=== PATIENT | female | born 1960 | race Caucasian/White ===

== ENCOUNTER 2020-10-16 14:11 | Observation (INO) | payer BC ==
--- NOTE | 2020-10-16 14:31 | ERPHSYRPT ---
- History of Present Illness Time Seen by Provider: 10/16/20 14:30 Source: patient Exam Limitations: no limitations Physician History: Patient is a 60-year-old female with a history of diabetes presents to our ED with complaints of headache x2 days, dizziness x1 day, and weakness and numbness to her left lower leg which was observed this morning upon awakening. Patient awoke this morning at approximately 5:30 AM. The numbness and weakness of the left lower leg likely occurred at some point while she was asleep. Upon arrival to our ED our information receptionist observed the patient's speech was somewhat slurred. However during my exam patient's speech did not appear slurred. Patient's headache has been intermittent over the past couple days. Headache is global. Patient states her dizziness occurs mostly when she turns her head. No associated nausea or vomiting. Symptoms are constant. Symptoms are moderate in intensity. No specific worsening or improving factors. Patient is a diabetic. Patient states TIAs run in her family. Patient is a none smoker. 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 Patient voices no other complaints or concerns at this time. Timing/Duration: day(s) Severity: moderate Modifying Factors: Improves With: nothing Associated Symptoms: headaches, weakness, No shortness of breath, No chest pain, No syncope, No seizure Allergies/Adverse Reactions: codeine Allergy (Verified 10/16/20 14:56) lidocaine Allergy (Verified 10/16/20 14:56) Home Medications: Glimepiride 4 mg [Amaryl 4 mg] 4 mg PO BID 10/16/20 [History] Insulin NPH Hum/Reg Insulin Hm [Novolin 70-30 Flexpen] 1 unit SQ BID 10/16/20 [History] lisinopriL [Lisinopril] 10 mg PO DAILY 10/16/20 [History] - Review of Systems Constitutional: No Symptoms, No Fever, No Chills Eyes: No Symptoms Ears, Nose, & Throat: No Symptoms Respiratory: No Symptoms, No Cough, No Dyspnea Cardiac: No Symptoms, No Chest Pain, No Edema, No Syncope Abdominal/Gastrointestinal: No Symptoms, No Abdominal Pain, No Nausea, No Vomiting, No Diarrhea Genitourinary Symptoms: No Symptoms, No Dysuria Musculoskeletal: No Symptoms, No Back Pain, No Neck Pain Skin: No Symptoms, No Rash Neurological: No Symptoms, No Dizziness, No Focal Weakness, No Sensory Changes Psychological: No Symptoms Endocrine: No Symptoms Hematologic/Lymphatic: No Symptoms Immunological/Allergic: No Symptoms All Other Systems: Reviewed and Negative - Nursing Vital Signs Nursing Vital Signs: Initial Vital Signs Temperature 97.8 F 10/16/20 14:16 Pulse Rate 92 H 10/16/20 14:16 Respiratory Rate 20 10/16/20 14:16 Blood Pressure 179/90 10/16/20 14:16 O2 Sat by Pulse Oximetry 97 10/16/20 14:16 Pain Scale Pain Intensity 5 - Physical Exam General Appearance: no apparent distress, alert Eye Exam: PERRL/EOMI, eyes nml inspection Ears, Nose, Throat Exam: normal ENT inspection, TMs normal, pharynx normal, moist mucous membranes Neck Exam: normal inspection, non-tender, supple, full range of motion Respiratory Exam: normal breath sounds, lungs clear, No respiratory distress Cardiovascular Exam: regular rate/rhythm, normal heart sounds, normal peripheral pulses Gastrointestinal/Abdomen Exam: soft, normal bowel sounds, No tenderness, No mass Back Exam: normal inspection, normal range of motion, No CVA tenderness, No vertebral tenderness Extremity Exam: normal inspection, normal range of motion, pelvis stable Neurologic Exam: alert, oriented x 3, cooperative, coffee blender II-XII nml as tested, normal mood/affect, sensation nml, sensory deficit, No motor deficits, No facial droop (Left lower leg appears to be somewhat less coordinated during heel -to-muhammad exam. Patient states sensation is somewhat more diminished. Remaining neurologic exam appears to be normal. Negative drift. No obvious slurred speech observed.), No slurred speech Skin Exam: normal color, warm, dry, No rash Lymphatic Exam: No adenopathy SpO2 Interpretation: normal O2 Delivery: Room Air - Course Nursing assessment & vital signs reviewed: Yes EKG Interpreted by Me: RATE (95), Sinus Rhythm, NORMAL AXIS, NORMAL INTERVALS - CT Exams Head CT Interpretation: Tele-radiologist Report (CT head negative for acute injury or cranial pathology.) Ordered Tests: Active Orders 24 hr Category Date Time Status Juvenile [employer] Judge STAT Care 10/16/20 14:27 Active EKG-ER Only STAT Care 10/16/20 14:26 Active IV Insertion STAT Care 10/16/20 14:26 Active POCT Glucose Check STAT Care 10/16/20 14:33 Active Pulse Oximetry (ED) STAT Care 10/16/20 14:26 Active HEAD WITHOUT CONTRAST [CT] Stat Exams 10/16/20 14:26 Completed CBC W DIFF Stat Lab 10/16/20 14:30 Completed CMP Stat Lab 10/16/20 14:30 Completed POCT GLUCOSE Stat Lab 10/16/20 14:32 Completed TROPONIN Q3H Lab 10/16/20 14:30 Completed TROPONIN Q3H Lab 10/16/20 17:30 Completed TROPONIN Q3H Lab 10/16/20 20:30 Ordered TROPONIN Q3H Lab 10/16/20 23:30 Ordered TROPONIN Q3H Lab 10/17/20 02:30 Ordered Transfer Order Routine Transfer 10/16/20 Ordered Medication Summary Generic Name Dose Route Start Last Admin Trade Name Freq PRN Reason Stop Dose Admin Sodium Chloride 1,000 mls @ 75 mls/hr 10/16/20 14:30 10/16/20 14:46 Sodium Chloride 0.9% 1000 Ml IV 11/15/20 14:29 75 mls/hr .[id number] JEAN-PAUL Administration Discontinued Medications Generic Name Dose Route Start Last Admin Trade Name Freq PRN Reason Stop Dose Admin Aspirin 324 mg 10/16/20 18:41 Baby Aspirin 81 Mg Chew PO 10/16/20 18:42 STAT ONE Lab/Rad Data: Laboratory Result Diagrams 10/16/20 14:30 10/16/20 14:30 Laboratory Results 10/16/20 10/16/20 10/16/20 Range/Units 17:59 17:30 14:32 WBC (4.0-10.5) K/mm3 RBC (4.1-5.4) M/mm3 Hgb (12.0-16.0) gm/dl Hct (35-47) % MCV (78-100) fl MCH (26-32) pg MCHC (32-36) g/dl RDW (11.5-14.0) % Plt Count (150-450) K/mm3 MPV (7.5-11.0) fl Gran % (36.0-66.0) % Eos # (Auto) (0-0.5) Absolute Lymphs (auto) (1.0-4.6) Absolute Monos (auto) (0.0-1.3) Lymphocytes % (24.0-44.0) % Monocytes % (0.0-12.0) % Eosinophils % (0.00-5.0) % Basophils % (0.0-0.4) % Absolute Granulocytes (1.4-6.9) Basophils # (0-0.4) Sodium (137-145) mmol/L Potassium (3.5-5.1) mmol/L Chloride (98-107) mmol/L Carbon Dioxide (22-30) mmol/L Anion Gap (5-15) MEQ/L BUN (7-17) mg/dL Creatinine (0.52-1.04) mg/dL Estimated GFR ML/MIN Glucose (74-106) mg/dL POC Glucometer 337 H (74 to 106) mg/dL Calcium (8.4-10.2) mg/dL Total Bilirubin (0.2-1.3) mg/dL AST (14-36) U/L ALT (0-35) U/L Alkaline Phosphatase (38-126) U/L Troponin I < 0.012 (0.000-0.034) ng/mL Serum Total Protein (6.3-8.2) g/dL Albumin (3.5-5.0) g/dL SARS-CoV-2 (PCR) NEGATIVE (NEGATIVE) 10/16/20 10/16/20 10/16/20 Range/Units 14:30 14:30 14:30 WBC 7.7 (4.0-10.5) K/mm3 RBC 4.83 (4.1-5.4) M/mm3 Hgb 14.5 (12.0-16.0) gm/dl Hct 43.7 (35-47) % MCV 90.5 (78-100) fl MCH 30.0 (26-32) pg MCHC 33.2 (32-36) g/dl RDW 13.1 (11.5-14.0) % Plt Count 240 (150-450) K/mm3 MPV 9.4 (7.5-11.0) fl Gran % 54.1 (36.0-66.0) % Eos # (Auto) 0.14 (0-0.5) Absolute Lymphs (auto) 2.69 (1.0-4.6) Absolute Monos (auto) 0.67 (0.0-1.3) Lymphocytes % 35.0 (24.0-44.0) % Monocytes % 8.7 (0.0-12.0) % Eosinophils % 1.8 (0.00-5.0) % Basophils % 0.4 (0.0-0.4) % Absolute Granulocytes 4.16 (1.4-6.9) Basophils # 0.03 (0-0.4) Sodium 139 (137-145) mmol/L Potassium 4.1 (3.5-5.1) mmol/L Chloride 102 (98-107) mmol/L Carbon Dioxide 26 (22-30) mmol/L Anion Gap 15.2 H (5-15) MEQ/L BUN 14 (7-17) mg/dL Creatinine 0.67 (0.52-1.04) mg/dL Estimated GFR > 60.0 ML/MIN Glucose 359 H (74-106) mg/dL POC Glucometer (74 to 106) mg/dL Calcium 9.7 (8.4-10.2) mg/dL Total Bilirubin 0.20 (0.2-1.3) mg/dL AST 24 (14-36) U/L ALT 24 (0-35) U/L Alkaline Phosphatase 55 (38-126) U/L Troponin I < 0.012 (0.000-0.034) ng/mL Serum Total Protein 6.5 (6.3-8.2) g/dL Albumin 4.0 (3.5-5.0) g/dL SARS-CoV-2 (PCR) (NEGATIVE) - Progress Progress: improved Progress Note: Case discussed with teleneuro neurologist. She states patient is out of the window for TPA. She recommends hospitalization for MRI. No further recommendation. Case discussed Dr. Newton covering Dr. Drake. Dr. Newton accepts admission. Patient is Covid negative 10/16/20 18:00 10/16/20 19:25 Discussed with : Heather Will see patient in: hospital (observation) Counseled pt/family regarding: lab results, diagnosis, rad results - Departure Departure Disposition: Observation Clinical Impression: Dizziness, Stroke Condition: Stable Critical Care Time: No Referrals: MARCUS DRAKE MD [Primary Care Provider] -
[2020-10-16] MEDS ORDERED: Sodium Chloride 0.9% 1000 ML 1,000 ML ONE (14:35)
--- NOTE | 2020-10-16 14:37 | XRAY ---
Indication: Stroke like symptoms. Multiple contiguous axial images obtained through the head without contrast. Comparison: None Age-appropriate global atrophy. No acute intracranial hemorrhage, abnormal extra-axial fluid collection, or mass effect. Fourth ventricle is midline without hydrocephalus. Perry-white matter differentiation preserved. Bony calvarium intact. Visualized paranasal sinuses and mastoid air cells are clear. Impression: Negative CT head without contrast exam.
[2020-10-16 14:39] LABS: Absolute Neutrophil Ct (ANC) 4.16 (1.4-6.9); BASOPHIL % 0.4 % (0.0-0.4); Basophil (Absolute #) 0.03 (0-0.4); Eosinophil % 1.8 % (0.00-5.0); Eosinophil (Absolute #) 0.14 (0-0.5); Hematocrit 43.7 % (35-47); Hemoglobin 14.5 gm/dl (12.0-16.0); Lymphocyte (Absolute #) 2.69 (1.0-4.6); Mean Cell Volume 90.5 fl (78-100); Mean Corpuscular Hgb Concent. 33.2 g/dl (32-36); Mean Platelet Volume 9.4 fl (7.5-11.0); Monocyte (Absolute #) 0.67 (0.0-1.3); Monocytes % 8.7 % (0.0-12.0); Neutrophil % 54.1 % (36.0-66.0); Platelet Count 240 K/mm3 (150-450); Red Blood Count 4.83 M/mm3 (4.1-5.4); Red Cell Distribution Width 13.1 % (11.5-14.0); White Blood Count 7.7 K/mm3 (4.0-10.5)
[2020-10-16] MEDS: Sodium Chloride 0.9% 1000 ML 1,000 ML IV SCH (14:46)
[2020-10-16 14:53] LABS: ALKALINE PHOSPHATASE 55 U/L (38-126); ANION GAP 15.2 MEQ/L (5-15); BLOOD UREA NITROGEN 14 mg/dL (7-17); CHLORIDE 102 mmol/L (98-107); Calcium 9.7 mg/dL (8.4-10.2); Carbon Dioxide 26 mmol/L (22-30); Creatinine 1 0.67 mg/dL (0.52-1.04); EST GLOMERULAR FILTRATION RATE > 60.0 ML/MIN; Glucose 359 mg/dL (74-106); Potassium 4.1 mmol/L (3.5-5.1); SGOT/AST 24 U/L (14-36); SGPT/ALT 24 U/L (0-35); SODIUM 139 mmol/L (137-145); Total Protein 6.5 g/dL (6.3-8.2)
[2020-10-16] MEDS ORDERED: BABY ASPIRIN 81 MG CHEW PO ONE (18:41)
[2020-10-16] MEDS ORDERED: Zofran 4 MG/2 ML VIAL IV PRN (19:50)
[2020-10-16] MEDS ORDERED: Senokot-S Tablet PO PRN (19:50)
[2020-10-16] MEDS ORDERED: MAALOX ES 30 ML UNIT DOSE PO PRN (19:50)
[2020-10-16] MEDS ORDERED: MILK OF MAGNESIA 30 ML PO PRN (19:50)
[2020-10-16] MEDS ORDERED: TYLENOL 325 MG PO PRN (19:50)
[2020-10-16] MEDS ORDERED: APRESOLINE 20 MG/ML INJ IV PRN (20:48)
[2020-10-16] MEDS: HUMALOG SQ PRN (22:08)
[2020-10-16] MEDS: Lyrica 50MG PO SCH (22:08)
[2020-10-17] MEDS ORDERED: Sodium Chloride 0.9% 1000 ML 1,000 ML ONE (02:59)
[2020-10-17] MEDS: Sodium Chloride 0.9% 1000 ML 1,000 ML IV SCH ×2 (03:02→22:02)
[2020-10-17 04:50] LABS: Risk Ratio 6.6
[2020-10-17] MEDS: Ecotrin 325 MG PO SCH (09:01)
[2020-10-17] MEDS: Lantus Insulin SQ SCH (09:01)
[2020-10-17] MEDS: Zestril 10 MG PO SCH (09:01)
[2020-10-17] MEDS: AMARYL 4 MG PO SCH ×2 (09:01→17:45)
--- NOTE | 2020-10-17 09:09 | PCM.HP ---
History of Present Illness - Chief Complaint Chief Complaint: CVA History of Present Illness: is a 60 year old female pt of Dr. Rollins with DM, HTN, and peripheral neuropathy who was admitted through ER last night with CVA. She has had 3d of RODRÍGUEZ and 2d of dizziness (started with vertigo, now lightheadedness). Yesterday morning she woke up with weakness/numbness in LLE - she did go ahead and go to work, and when her coworker came in she came home feeling ill. She was having slurred speech initially in ER, and now complains of some difficulty word finding. She has some persistent L hand weakness, but her main issue is her leg. Her CT of the head was neg in ER. Troponins neg x 5. At work 6d ago she had an episode where her L foot slid and she had to concentrate on her walking after that. - Review of Systems Musculoskeletal: Back Pain (between shoulder blades), Other (L calf pain x 2 mo; limb cramping) Neurological: Dizziness, Headache, Parasthesia, Other (weakness L sided) All Other Systems: Reviewed and Negative Medications & Allergies Home Medications: Home Medication List Glimepiride 4 mg [Amaryl 4 mg] 4 mg PO BID 10/16/20 [History Confirmed 10/16/20] Insulin NPH Hum/Reg Insulin Hm [Novolin 70-30 Flexpen] 1 unit SQ BID 10/16/20 [History Confirmed 10/16/20] Pregabalin 50 mg [Lyrica 50MG] 50 mg PO QHS 10/16/20 [History Confirmed 10/16/20] lisinopriL [Lisinopril] 10 mg PO DAILY 10/16/20 [History Confirmed 10/16/20] Allergies/Adverse Reactions: Allergies Allergy/AdvReac Type Severity Reaction Status Date / Time codeine Allergy Verified 10/16/20 14:56 lidocaine Allergy Verified 10/16/20 14:56 - Past Medical History Past Medical History: Yes Neurological History: No Pertinent History ENT History: Macular Degeneration Cardiac History: Hypertension Respiratory History: No Pertinent History Endocrine Medical History: Diabetes Type II Musculoskelatal History: Fibromyalgia GI Medical History: No Pertinent History History: No Pertinent History Pyscho-Social History: No Pertinent History Reproductive Disorders: No Pertinent History - Female History Are you now?: No - Past Surgical History Past Surgical History: Yes Neuro Surgical History: No Pertinent History Cardiac History: No Pertinent History Respiratory Surgery: No Pertinent History GI Surgical History: Appendectomy, Cholecystectomy Female Surgical History: Hysterectomy, Section - Social History Smoking Status: Never smoker Exposure to second hand smoke: No Alcohol: None Drug Use: none - Physical Exam Vital Signs: Vital Signs - 24 hr Temp Pulse Resp BP Pulse Ox 10/17/20 08:00 98.6 F 70 16 157/70 92 L 10/17/20 04:00 98.5 F 73 16 145/79 97 10/17/20 00:00 98.1 F 82 14 140/77 96 10/16/20 21:10 98.7 F 77 16 179/84 96 10/16/20 19:52 98.7 F 77 16 179/84 96 10/16/20 19:10 75 16 163/87 98 10/16/20 18:06 79 20 172/90 97 10/16/20 17:06 77 14 168/84 97 10/16/20 16:12 80 19 162/85 97 10/16/20 14:26 98 10/16/20 14:16 97.8 F 92 H 20 179/90 97 General Appearance: no apparent distress, alert Neurologic Exam: oriented x 3, cooperative, normal mood/affect, other (has mild difficulty word finding at times), No facial droop, No slurred speech Eye Exam: eyes nml inspection Ears, Nose, Throat Exam: moist mucous membranes Neck Exam: normal inspection Respiratory Exam: normal breath sounds, lungs clear, No crackles/rales, No rhonchi, No wheezing Cardiovascular Exam: regular rate/rhythm, normal heart sounds, No murmur Gastrointestinal/Abdomen Exam: soft, normal bowel sounds, No tenderness, No distention, No mass, No guarding, No rebound Back Exam: normal inspection, No rash Extremity Exam: other (L calf nttp; does palpate firmer than R), No pedal edema, No swelling Skin Exam: normal color, warm, dry, No rash Results - Labs Lab/Micro Results: Lab Results-Last 24 Hours 10/16/20 10/16/20 10/16/20 Range/Units 14:30 14:30 14:30 WBC 7.7 (4.0-10.5) K/mm3 RBC 4.83 (4.1-5.4) M/mm3 Hgb 14.5 (12.0-16.0) gm/dl Hct 43.7 (35-47) % MCV 90.5 (78-100) fl MCH 30.0 (26-32) pg MCHC 33.2 (32-36) g/dl RDW 13.1 (11.5-14.0) % Plt Count 240 (150-450) K/mm3 MPV 9.4 (7.5-11.0) fl Gran % 54.1 (36.0-66.0) % Eos # (Auto) 0.14 (0-0.5) Absolute Lymphs (auto) 2.69 (1.0-4.6) Absolute Monos (auto) 0.67 (0.0-1.3) Lymphocytes % 35.0 (24.0-44.0) % Monocytes % 8.7 (0.0-12.0) % Eosinophils % 1.8 (0.00-5.0) % Basophils % 0.4 (0.0-0.4) % Absolute Granulocytes 4.16 (1.4-6.9) Basophils # 0.03 (0-0.4) Sodium 139 (137-145) mmol/L Potassium 4.1 (3.5-5.1) mmol/L Chloride 102 (98-107) mmol/L Carbon Dioxide 26 (22-30) mmol/L Anion Gap 15.2 H (5-15) MEQ/L BUN 14 (7-17) mg/dL Creatinine 0.67 (0.52-1.04) mg/dL Estimated GFR > 60.0 ML/MIN Glucose 359 H (74-106) mg/dL POC Glucometer (74 to 106) mg/dL Calcium 9.7 (8.4-10.2) mg/dL Total Bilirubin 0.20 (0.2-1.3) mg/dL AST 24 (14-36) U/L ALT 24 (0-35) U/L Alkaline Phosphatase 55 (38-126) U/L Troponin I < 0.012 (0.000-0.034) ng/mL Serum Total Protein 6.5 (6.3-8.2) g/dL Albumin 4.0 (3.5-5.0) g/dL Triglycerides (30-150) mg/dL Cholesterol (50-200) mg/dL LDL Cholesterol (30-100) mg/dL HDL Cholesterol (40-60) mg/dL Heart Disease Risk Ratio SARS-CoV-2 (PCR) (NEGATIVE) 10/16/20 10/16/20 10/16/20 Range/Units 14:32 17:30 17:59 WBC (4.0-10.5) K/mm3 RBC (4.1-5.4) M/mm3 Hgb (12.0-16.0) gm/dl Hct (35-47) % MCV (78-100) fl MCH (26-32) pg MCHC (32-36) g/dl RDW (11.5-14.0) % Plt Count (150-450) K/mm3 MPV (7.5-11.0) fl Gran % (36.0-66.0) % Eos # (Auto) (0-0.5) Absolute Lymphs (auto) (1.0-4.6) Absolute Monos (auto) (0.0-1.3) Lymphocytes % (24.0-44.0) % Monocytes % (0.0-12.0) % Eosinophils % (0.00-5.0) % Basophils % (0.0-0.4) % Absolute Granulocytes (1.4-6.9) Basophils # (0-0.4) Sodium (137-145) mmol/L Potassium (3.5-5.1) mmol/L Chloride (98-107) mmol/L Carbon Dioxide (22-30) mmol/L Anion Gap (5-15) MEQ/L BUN (7-17) mg/dL Creatinine (0.52-1.04) mg/dL Estimated GFR ML/MIN Glucose (74-106) mg/dL POC Glucometer 337 H (74 to 106) mg/dL Calcium (8.4-10.2) mg/dL Total Bilirubin (0.2-1.3) mg/dL AST (14-36) U/L ALT (0-35) U/L Alkaline Phosphatase (38-126) U/L Troponin I < 0.012 (0.000-0.034) ng/mL Serum Total Protein (6.3-8.2) g/dL Albumin (3.5-5.0) g/dL Triglycerides (30-150) mg/dL Cholesterol (50-200) mg/dL LDL Cholesterol (30-100) mg/dL HDL Cholesterol (40-60) mg/dL Heart Disease Risk Ratio SARS-CoV-2 (PCR) NEGATIVE (NEGATIVE) 10/16/20 10/16/20 10/16/20 Range/Units 19:33 20:01 20:34 WBC (4.0-10.5) K/mm3 RBC (4.1-5.4) M/mm3 Hgb (12.0-16.0) gm/dl Hct (35-47) % MCV (78-100) fl MCH (26-32) pg MCHC (32-36) g/dl RDW (11.5-14.0) % Plt Count (150-450) K/mm3 MPV (7.5-11.0) fl Gran % (36.0-66.0) % Eos # (Auto) (0-0.5) Absolute Lymphs (auto) (1.0-4.6) Absolute Monos (auto) (0.0-1.3) Lymphocytes % (24.0-44.0) % Monocytes % (0.0-12.0) % Eosinophils % (0.00-5.0) % Basophils % (0.0-0.4) % Absolute Granulocytes (1.4-6.9) Basophils # (0-0.4) Sodium (137-145) mmol/L Potassium (3.5-5.1) mmol/L Chloride (98-107) mmol/L Carbon Dioxide (22-30) mmol/L Anion Gap (5-15) MEQ/L BUN (7-17) mg/dL Creatinine (0.52-1.04) mg/dL Estimated GFR ML/MIN Glucose (74-106) mg/dL POC Glucometer 176 H 244 H (74 to 106) mg/dL Calcium (8.4-10.2) mg/dL Total Bilirubin (0.2-1.3) mg/dL AST (14-36) U/L ALT (0-35) U/L Alkaline Phosphatase (38-126) U/L Troponin I < 0.012 (0.000-0.034) ng/mL Serum Total Protein (6.3-8.2) g/dL Albumin (3.5-5.0) g/dL Triglycerides (30-150) mg/dL Cholesterol (50-200) mg/dL LDL Cholesterol (30-100) mg/dL HDL Cholesterol (40-60) mg/dL Heart Disease Risk Ratio SARS-CoV-2 (PCR) (NEGATIVE) 10/16/20 10/17/20 10/17/20 Range/Units 23:40 04:20 04:20 WBC (4.0-10.5) K/mm3 RBC (4.1-5.4) M/mm3 Hgb (12.0-16.0) gm/dl Hct (35-47) % MCV (78-100) fl MCH (26-32) pg MCHC (32-36) g/dl RDW (11.5-14.0) % Plt Count (150-450) K/mm3 MPV (7.5-11.0) fl Gran % (36.0-66.0) % Eos # (Auto) (0-0.5) Absolute Lymphs (auto) (1.0-4.6) Absolute Monos (auto) (0.0-1.3) Lymphocytes % (24.0-44.0) % Monocytes % (0.0-12.0) % Eosinophils % (0.00-5.0) % Basophils % (0.0-0.4) % Absolute Granulocytes (1.4-6.9) Basophils # (0-0.4) Sodium (137-145) mmol/L Potassium (3.5-5.1) mmol/L Chloride (98-107) mmol/L Carbon Dioxide (22-30) mmol/L Anion Gap (5-15) MEQ/L BUN (7-17) mg/dL Creatinine (0.52-1.04) mg/dL Estimated GFR ML/MIN Glucose (74-106) mg/dL POC Glucometer (74 to 106) mg/dL Calcium (8.4-10.2) mg/dL Total Bilirubin (0.2-1.3) mg/dL AST (14-36) U/L ALT (0-35) U/L Alkaline Phosphatase (38-126) U/L Troponin I < 0.012 < 0.012 (0.000-0.034) ng/mL Serum Total Protein (6.3-8.2) g/dL Albumin (3.5-5.0) g/dL Triglycerides 320 H (30-150) mg/dL Cholesterol 187 (50-200) mg/dL LDL Cholesterol 100 (30-100) mg/dL HDL Cholesterol 28 L (40-60) mg/dL Heart Disease Risk Ratio 6.6 SARS-CoV-2 (PCR) (NEGATIVE) 10/17/20 Range/Units 07:22 WBC (4.0-10.5) K/mm3 RBC (4.1-5.4) M/mm3 Hgb (12.0-16.0) gm/dl Hct (35-47) % MCV (78-100) fl MCH (26-32) pg MCHC (32-36) g/dl RDW (11.5-14.0) % Plt Count (150-450) K/mm3 MPV (7.5-11.0) fl Gran % (36.0-66.0) % Eos # (Auto) (0-0.5) Absolute Lymphs (auto) (1.0-4.6) Absolute Monos (auto) (0.0-1.3) Lymphocytes % (24.0-44.0) % Monocytes % (0.0-12.0) % Eosinophils % (0.00-5.0) % Basophils % (0.0-0.4) % Absolute Granulocytes (1.4-6.9) Basophils # (0-0.4) Sodium (137-145) mmol/L Potassium (3.5-5.1) mmol/L Chloride (98-107) mmol/L Carbon Dioxide (22-30) mmol/L Anion Gap (5-15) MEQ/L BUN (7-17) mg/dL Creatinine (0.52-1.04) mg/dL Estimated GFR ML/MIN Glucose (74-106) mg/dL POC Glucometer 175 H (74 to 106) mg/dL Calcium (8.4-10.2) mg/dL Total Bilirubin (0.2-1.3) mg/dL AST (14-36) U/L ALT (0-35) U/L Alkaline Phosphatase (38-126) U/L Troponin I (0.000-0.034) ng/mL Serum Total Protein (6.3-8.2) g/dL Albumin (3.5-5.0) g/dL Triglycerides (30-150) mg/dL Cholesterol (50-200) mg/dL LDL Cholesterol (30-100) mg/dL HDL Cholesterol (40-60) mg/dL Heart Disease Risk Ratio SARS-CoV-2 (PCR) (NEGATIVE) Accuchecks Date 10/17/20 Date 10/16/20 Date 10/16/20 - Radiology Impressions Radiology Exams & Impressions: Radiology Procedures Category Date Time Status CAROTID BILATERAL [US] Routine Exams 10/17/20 Ordered ECHO W/2D AND DOPPLER [US] Routine Exams 10/17/20 Ordered HEAD WITHOUT CONTRAST [CT] Stat Exams 10/16/20 14:26 Completed MRA BRAIN WITH CONTRAST [MRI] Routine Exams 10/17/20 09:02 Ordered MRA NECK WITH CONTRAST [MRI] Routine Exams 10/17/20 09:02 Ordered MRI BRAIN W & W/O CONTRAST [MRI] Routine Exams 10/17/20 08:55 Ordered VENOUS UNILAT/LIMITED EXTREMIT [US] Routine Exams 10/17/20 Ordered - Other Procedures and Tests Respiratory Therapy 10/18/20 05:00 EKG DAILY 10/19/20 05:00 EKG DAILY Assessment/Plan (1) Stroke Current Visit: Yes Status: Acute Qualifiers: CVA mechanism: unspecified Qualified Code(s): I63.9 - Cerebral infarction, unspecified Assessment & Plan: [Late entry for 10/17/20, 0830] Appreciate teleneurology consult. Per their note, will: Have pt wear Holter monitor at discharge x 48 hours. MRA brain/neck. MRI brain. Check fasting lipids, with goal LDL <70. Goal blood sugars <180. ASA 325mg daily. Lipitor 40-80mg/d if tolerated. PT/OT/ST consults. Code(s): I63.9 - CEREBRAL INFARCTION, UNSPECIFIED (2) Diabetes mellitus Current Visit: Yes Status: Chronic Qualifiers: Diabetes mellitus type: type 2 Diabetes mellitus fdc insulin use: without long term care pharmacist use Diabetes mellitus complication status: with neurologic complications Diabetes mellitus complication detail: with polyneuropathy Qualified Code(s): E11.42 - Type 2 diabetes mellitus with diabetic polyneuropathy Assessment & Plan: Lantus started as her BS were in the 300s - 10 u given last night and 20 units this a.m. Code(s): E11.9 - TYPE 2 DIABETES MELLITUS WITHOUT COMPLICATIONS (3) Peripheral neuropathy Current Visit: Yes Status: Chronic Qualifiers: Peripheral neuropathy type: polyneuropathy associated with underlying disease Qualified Code(s): G63 - Polyneuropathy in diseases classified elsewhere Code(s): G62.9 - POLYNEUROPATHY, UNSPECIFIED
[2020-10-17] MEDS ORDERED: AMARYL 4 MG PO SCH (10:00)
--- NOTE | 2020-10-17 11:04 | XRAY ---
Indication: Left calf pain. Two-dimensional sonogram and color Doppler imaging of the major venous vessels of the left leg performed. Comparison: None No thrombus seen in the examined deep venous vessels of the left leg including greater saphenous vein. Veins demonstrate normal compressibility. Venous waveforms are normal with and without augmentation. Impression: Left leg negative for DVT.
--- NOTE | 2020-10-17 11:06 | XRAY ---
Indication: CVA. Two-dimensional sonogram and color Doppler imaging of the carotid arteries of the neck performed. Comparison: None Examination of the right carotid circulation demonstrates mild heterogeneous plaquing at the level of the bulb extending into the origin of the external carotid artery. Remaining common carotid and internal carotid arteries are widely patent. PSV of the CCA is 80 cm/s. PSV of the ICA is 169 cm/s. ICA/CCA ratio is 2.1. Normal antegrade vertebral artery flow. Examination of the left carotid circulation demonstrates minimal calcified plaquing at the level of the bulb. Remaining common carotid, internal carotid, and external carotid arteries are widely patent. Incidental tortuous proximal internal carotid artery. PSV of the CCA is 81 cm/s. PSV of the ICA is 114 cm/s. ICA/CCA ratio is 1.4. Normal antegrade vertebral artery flow. Impression: Minimal/mild arteriosclerotic plaquing, right greater than left as detailed. Velocity measurements and ratios favor 50-69% stenosis on the right and no hemodynamically significant flow-limiting stenosis on the left.
[2020-10-17] MEDS: ENOXAPARIN SODIUM SQ SCH (11:45)
--- NOTE | 2020-10-17 13:57 | XRAY ---
Indication: CVA. Conventional contrast enhanced MRA neck performed. 15 cc Dotarem contrast used. Comparison: None Visualized common carotid, carotid bulb, internal carotid, and external carotid arteries are normal in course and caliber bilaterally. No focal critical stenosis, obstruction, or AV malformation. Vertebral arteries are bilaterally symmetric without critical stenosis/obstruction. Impression: Negative MRA neck with contrast exam.
--- NOTE | 2020-10-17 14:00 | XRAY ---
Indication: CVA. Sagittal, coronal, and axial MRI brain performed using pre and post T1, T2, FLAIR, diffusion, and ADC sequences. 15 cc Dotarem contrast used. Comparison: None Age-appropriate global atrophy. No acute intracranial hemorrhage, abnormal extra-axial fluid collection, or mass effect. Diffusion images are negative for restricted signal. Following gadolinium, there is no abnormal enhancing intra or extra-axial mass. Fourth ventricle is midline without hydrocephalus. 7/8 cranial nerve complex bilaterally symmetric. Normal flow void signal within the major intracerebral circulation. Normal appearing craniocervical junction and sella turcica. Paranasal sinuses are clear. Impression: Negative MRI brain with contrast exam.
--- NOTE | 2020-10-17 14:07 | XRAY ---
Indication: CVA. Conventional contrast enhanced MRA brain performed using 15 cc Dotarem contrast. Comparison: None Distal internal carotid arteries are bilaterally symmetric without critical stenosis, obstruction, or AV malformation. Normal carotid terminus with normal branching A1 and M1 segments bilaterally. More distal anterior cerebral, middle cerebral, and anterior communicating arteries are normal in MRA appearance. Posterior circulation demonstrates normal MRA appearance to the basilar artery with normal patent branching posterior cerebral, superior cerebellar, anterior inferior cerebellar arteries bilaterally. Impression: Negative MRA brain with contrast exam.
[2020-10-17] MEDS: HUMALOG SQ PRN ×2 (17:50→21:06)
[2020-10-17] MEDS: Lyrica 50MG PO SCH (21:06)
[2020-10-18] MEDS: Sodium Chloride 0.9% 1000 ML 1,000 ML IV SCH (08:42)
[2020-10-18] MEDS: AMARYL 4 MG PO SCH (08:44)
[2020-10-18] MEDS: HUMALOG SQ PRN ×2 (08:44→12:20)
[2020-10-18] MEDS: Zestril 10 MG PO SCH (10:28)
[2020-10-18] MEDS: Ecotrin 325 MG PO SCH (10:28)
[2020-10-18] MEDS: ENOXAPARIN SODIUM SQ SCH (10:30)
[2020-10-18] MEDS: Lantus Insulin SQ SCH (10:31)
[2020-10-18 11:58] VITALS: BP 159/75; PULSE 84; O2SAT 94
== END 2020-10-18 14:58 | disposition home or self-care (01) ==
LOC: ED 14:11 → MED SURG 19:48
PROVIDERS: ADMIT Family Medicine; ATTEND Family Medicine
DX: I63.9 Cerebral infarction, unspecified (principal); R51.9 Headache, unspecified; E11.42 Type 2 diabetes mellitus with diabetic polyneuropathy; R42 Dizziness and giddiness; R53.1 Weakness; R20.0 Anesthesia of skin; I10 Essential (primary) hypertension; Z79.899 Other long term (current) drug therapy; M54.9 Dorsalgia, unspecified; M79.605 Pain in left leg; Z20.828 Contact with and (suspected) exposure to other viral communicable diseases
CPT/HCPCS: 36415; 70450; 70544; 70548; 70553; 80053; 80061; 82947; 83036; 83721; 83735; 84443; 84484; 85025; 93005; 93041; 93270; 93306; 93880; 93971; 94760; 97110; 97162; 97165; 97530; 99285; U0003; J1650; J1817; Q3014; A9270-GY; G0378

== ENCOUNTER 2021-11-21 12:22 | Emergency (ER) | payer BC ==
[2021-11-21] MEDS ORDERED: BABY ASPIRIN 81 MG CHEW PO ONE (12:49)
[2021-11-21 12:57] LABS: Absolute Neutrophil Ct (ANC) 3.99 x10^3/uL (1.4-6.9); Basophil (Absolute #) 0.03 x10^3/uL (0-0.4); Eosinophil % 2.5 % (0.00-5.0); Eosinophil (Absolute #) 0.18 x10^3/uL (0-0.5); Hematocrit 43.5 % (35-47); Hemoglobin 14.4 g/dL (12.0-16.0); Lymphocyte (Absolute #) 2.45 x10^3/uL (1.0-4.6); Mean Cell Volume 90.2 fL (78-100); Mean Corpuscular Hemoglobin 29.9 pg (26-32); Mean Corpuscular Hgb Concent. 33.1 g/dL (32-36); Mean Platelet Volume 9.2 fL (7.5-11.0); Monocyte (Absolute #) 0.52 x10^3/uL (0.0-1.3); Monocytes % 7.2 % (0.0-12.0); Neutrophil % 55.5 % (36.0-66.0); Platelet Count 246 x10^3/uL (150-450); Red Blood Count 4.82 x10^6/uL (4.1-5.4); Red Cell Distribution Width 12.4 % (11.5-14.0); White Blood Count 7.2 x10^3/uL (4.0-10.5)
[2021-11-21] MEDS ORDERED: Sodium Chloride 0.9% 1000 ML 1,000 ML IV SCH (13:00)
[2021-11-21 13:03] LABS: Appearance CLEAR (CLEAR); Bilirubin NEGATIVE (NEGATIVE); Glucose NEGATIVE (NEGATIVE); Ketones NEGATIVE (NEGATIVE); Nitrite NEGATIVE (NEGATIVE); Protein,Urine Dip NEGATIVE (Negative); RBC TRACE-INTACT Ery/ul (0-5); Specific Gravity 1.015 (1.005-1.025); Urine Cultured Indicated? NO; Urobilinogen 0.2 mg/dL (0-1)
[2021-11-21 13:04] LABS: Dipstick done @ ? MAIN LAB
[2021-11-21 13:22] LABS: D-DIMER QUANTITATIVE < 0.19 mg/L (0.0-0.50); INR 0.97 (0.8-3.0); PROTIME 10.3 SECONDS (9.4-12.5); PTT 30.5 SECONDS (25.1-36.5)
[2021-11-21] MEDS ORDERED: Sodium Chloride 0.9% 1000 ML 1,000 ML ONE (13:23)
[2021-11-21] MEDS ORDERED: BABY ASPIRIN 81 MG CHEW ONE (13:23)
[2021-11-21 13:29] LABS: ALBUMIN 4.3 g/dL (3.5-5.0); ALKALINE PHOSPHATASE 69 U/L (38-126); AMYLASE 60 U/L (30-110); ANION GAP 10.8 MEQ/L (5-15); BLOOD UREA NITROGEN 16 mg/dL (7-17); CHLORIDE 102 mmol/L (98-107); Calcium 9.4 mg/dL (8.4-10.2); Carbon Dioxide 31 mmol/L (22-30); EST GLOMERULAR FILTRATION RATE > 60.0 ML/MIN; Glucose 174 mg/dL (74-106); LIPASE 69 U/L (23-300); MAGNESIUM 1.9 mg/dL (1.6-2.3); NT PRO BNP 103 pg/mL (0-900); Potassium 3.8 mmol/L (3.5-5.1); SGOT/AST 23 U/L (14-36); SGPT/ALT 23 U/L (0-35); SODIUM 140 mmol/L (137-145); Total Protein 7.1 g/dL (6.3-8.2)
--- NOTE | 2021-11-21 15:05 | XRAY ---
Exam: AP upright portable chest film from 11/21/2021. Comparison: [None.] Indication: 61-year-old female with chest pain. Findings: The transverse heart size appears within normal limits. The blaine and mediastinal structures appear unremarkable. There is adequate inflation of the lungs. The left hemidiaphragm is slightly higher than the right hemidiaphragm, nonspecific. No air space infiltrates, vascular congestion, pneumothorax, or pleural fluid is seen. An apparent necklace overlies the base of the neck. No acute osseous process is seen. Surgical clips are seen within the right upper quadrant consistent with prior cholecystectomy. Impression: 1. No acute cardiopulmonary disease is seen.
--- NOTE | 2021-11-21 15:36 | ERPHSYRPT ---
- History of Present Illness Time Seen by Provider: 11/21/21 12:30 Historian: patient, family Exam Limitations: no limitations Patient Subjective Stated Complaint: pt here for chest pressure to center of chest for 2 days, worse when walks, states she is under a lot of stress Triage Nursing Assessment: pt alert, walked in, resp easy, skin w/d/p. face mask in place , ches t clear, abd soft Physician History: Patient is a 61-year-old white female who presents with a complaint of chest pain. 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 The patient complains of a pressure type discomfort which does not radiate in the anterior chest which started yesterday this morning at work it seems somewhat worse. She complains of a bad headache. She has family history diabetes and hypertension as risk factors. 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 The patient and both admit to tremendous stress with her job at the [employer]. She is planning on quitting in approximately 48 hours. Timing/Duration: yesterday Activities at Onset: activity (Walking) Quality: pressure Location: central Chest Pain Radiation: no radiation Severity of Pain-Max: moderate Severity of Pain-Current: none Modifying Factors: Improves With: movement Associated Symptoms: shortness of breath, weakness, headache, No nausea, No vo miting Prior Chest Pain/Cardiac Workup: no prior cardiac workup Nitro Today/Relief: no nitro taken today Aspirin Treatment Today: no aspirin today Allergies/Adverse Reactions: codeine Allergy (Verified 11/21/21 12:23) lidocaine Allergy (Verified 11/21/21 12:23) Home Medications: lisinopriL [Lisinopril] 20 mg PO DAILY 10/16/20 [History] Insulin Glargine,Hum.rec.anlog [Basaglar Kwikpen U-100] 50 unit SQ HS 11/21/21 [History] Semaglutide [Ozempic] 1 ea WEEKLY 11/21/21 [History] Hx Influenza Vaccination/Date Given: No Hx Pneumococcal Vaccination/Date Given: No Immunizations Up to Date: Yes Travel Risk - International Travel Have you traveled outside of the country in past 3 weeks: No - Coronavirus Screening Are you exhibiting any of the following symptoms?: No Close contact with a COVID-19 positive Pt in past 14-21 Days: Yes - Vaccine Status Have you recieved a Covid-19 vaccination: Yes Head Of 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: Moderna - Vaccination Dates Date of 2cond Vaccination (if applicable): 05/2020 - Review of Systems Constitutional: No Fever, No Chills Eyes: No Symptoms Ears, Nose, & Throat: No Symptoms Respiratory: Dyspnea, No Cough Cardiac: No Chest Pain, No Edema, No Syncope Abdominal/Gastrointestinal: No Abdominal Pain, No Nausea, No Vomiting, No Diarrhea Genitourinary Symptoms: No Dysuria Musculoskeletal: No Back Pain, No Neck Pain Skin: No Rash Neurological: No Dizziness, No Focal Weakness, No Sensory Changes Psychological: No Symptoms Endocrine: No Symptoms All Other Systems: Reviewed and Negative - Past Medical History Pertinent Past Medical History: Yes Neurological History: No Pertinent History, Stroke ENT History: Macular Degeneration Cardiac History: Hypertension, Other Respiratory History: No Pertinent History Endocrine Medical History: Diabetes Type II Musculoskeletal History: Fibromyalgia GI Medical History: No Pertinent History History: No Pertinent History Psycho-Social History: No Pertinent History Female Reproductive Disorders: No Pertinent History Other Medical History: leaky heart valve - Past Surgical History Past Surgical History: Yes Neuro Surgical History: No Pertinent History Cardiac: No Pertinent History Respiratory: No Pertinent History Gastrointestinal: Appendectomy, Cholecystectomy Female Surgical History: Hysterectomy, Section - Social History Smoking Status: Never smoker Exposure to second hand smoke: No Drug Use: none Patient Lives Alone: No - Nursing Vital Signs Nursing Vital Signs: Initial Vital Signs Pulse Rate 67 08//22 12:23 Pain Scale Pain Intensity 0 - Physical Exam General Appearance: mild distress, alert Eye Exam: PERRL/EOMI, eyes nml inspection Ears, Nose, Throat Exam: normal ENT inspection, moist mucous membranes Neck Exam: normal inspection, non-tender, supple, full range of motion Respiratory Exam: normal breath sounds, lungs clear, No respiratory distress Cardiovascular Exam: regular rate/rhythm, normal heart sounds Gastrointestinal/Abdomen Exam: soft, No tenderness, No mass Back Exam: normal inspection, No CVA tenderness, No vertebral tenderness Extremity Exam: normal inspection, normal range of motion Neurologic Exam: alert, oriented x 3, cooperative, normal mood/affect, sensation nml, No motor deficits Skin Exam: normal color, warm, dry SpO2: 97 - Course Nursing assessment & vital signs reviewed: Yes EKG Interpreted by Me: RATE (66), Sinus Rhythm, Left Morehouse Deviation, NORMAL INTERVALS, NORMAL QRS, Non-specific ST Changes, Other (Interventricular conduction defect with left axis) - Radiology Exams Chest X-ray Interpretation: Reviewed by me Ordered Tests: Active Orders 24 hr Category Date Time Status EKG-ER Only STAT Care 11/21/21 12:49 Active IV Insertion STAT Care 11/21/21 12:49 Active CHEST 1 VIEW (PORTABLE) Stat Exams 11/21/21 12:49 Completed AMYLASE Stat Lab 11/21/21 12:54 Completed CBC W DIFF Stat Lab 11/21/21 12:54 Completed CMP Stat Lab 11/21/21 12:54 Completed D-DIMER QUANTITATIVE Stat Lab 11/21/21 12:54 Completed LIPASE Stat Lab 11/21/21 12:54 Completed Lactic Acid Stat Lab 11/21/21 12:49 Completed MAGNESIUM Stat Lab 11/21/21 12:54 Completed NT PRO BNP Stat Lab 11/21/21 12:54 Completed PROTIME WITH INR Stat Lab 11/21/21 12:54 Completed PTT Stat Lab 11/21/21 12:54 Completed TROPONIN Q4H Lab 11/21/21 12:54 Completed TROPONIN Q4H Lab 11/21/21 15:00 Completed TROPONIN Q4H Lab 11/21/21 21:00 Ordered UA W/RFX CULTURE Stat Lab 11/21/21 12:54 Completed Medication Summary Generic Name Dose Route Start Last Admin Trade Name Freq PRN Reason Stop Dose Admin Sodium Chloride 1,000 mls @ 100 mls/hr 11/21/21 13:00 11/21/21 13:24 Sodium Chloride 0.9% 1000 Ml IV 12/21/21 12:59 100 mls/hr .Q10H JEAN-PAUL Administration Discontinued Medications Generic Name Dose Route Start Last Admin Trade Name Freq PRN Reason Stop Dose Admin Aspirin 324 mg 11/21/21 12:49 11/21/21 13:23 Aspirin 81 Mg Tab.Chew PO 11/21/21 12:50 324 mg STAT ONE Administration Aspirin Confirm 11/21/21 13:23 Aspirin 81 Mg Tab.Chew Administered 11/21/21 13:24 Dose 81 mg .ROUTE .[id number] ONE Lab/Rad Data: Laboratory Result Diagrams 11/21/21 12:54 11/21/21 12:54 Laboratory Results 11/21/21 11/21/21 11/21/21 Range/Units 15:00 12:54 12:54 WBC (4.0-10.5) x10^3/uL RBC (4.1-5.4) x10^6/uL Hgb (12.0-16.0) g/dL Hct (35-47) % MCV (78-100) fL MCH (26-32) pg MCHC (32-36) g/dL RDW (11.5-14.0) % Plt Count (150-450) x10^3/uL MPV (7.5-11.0) fL Gran % (36.0-66.0) % Immature Gran % (Auto) (0.00-0.4) % Nucleat RBC Rel Count (0.00-0.1) % Eos # (Auto) (0-0.5) x10^3/uL Immature Gran # (Auto) (0.00-0.03) x10^3u/L Absolute Lymphs (auto) (1.0-4.6) x10^3/uL Absolute Monos (auto) (0.0-1.3) x10^3/uL Absolute Nucleated RBC (0.00-0.01) x10^3u/L Lymphocytes % (24.0-44.0) % Monocytes % (0.0-12.0) % Eosinophils % (0.00-5.0) % Basophils % (0.0-0.4) % Absolute Granulocytes (1.4-6.9) x10^3/uL Basophils # (0-0.4) x10^3/uL PT (9.4-12.5) SECONDS INR (0.8-3.0) APTT (25.1-36.5) SECONDS D-Dimer (0.0-0.50) mg/L Sodium (137-145) mmol/L Potassium (3.5-5.1) mmol/L Chloride (98-107) mmol/L Carbon Dioxide (22-30) mmol/L Anion Gap (5-15) MEQ/L BUN (7-17) mg/dL Creatinine (0.52-1.04) mg/dL Estimated GFR ML/MIN Glucose (74-106) mg/dL Lactic Acid (0.4-2.0) Calcium (8.4-10.2) mg/dL Magnesium (1.6-2.3) mg/dL Total Bilirubin (0.2-1.3) mg/dL AST (14-36) U/L ALT (0-35) U/L Alkaline Phosphatase (38-126) U/L Troponin I < 0.012 < 0.012 (0.000-0.034) ng/mL NT-Pro-B Natriuret Pep (0-900) pg/mL Serum Total Protein (6.3-8.2) g/dL Albumin (3.5-5.0) g/dL Amylase (30-110) U/L Lipase (23-300) U/L Urinalys Dipstick Clnc MAIN LAB Urine Color YELLOW (YELLOW) Urine Appearance CLEAR (CLEAR) Urine pH 6.0 (5-6) Ur Specific [place] 1.015 (1.005-1.025) POC Urine Protein Conf NEGATIVE (Negative) Urine Ketones NEGATIVE (NEGATIVE) Urine Nitrite NEGATIVE (NEGATIVE) Urine Bilirubin NEGATIVE (NEGATIVE) Urine Urobilinogen 0.2 (0-1) mg/dL Urine Leukocytes NEGATIVE (NEGATIVE) Urine WBC (Auto) NONE (0-5) /HPF Urine RBC (Auto) NONE (0-2) /HPF U Epithel Cells (Auto) NONE (FEW) /HPF Urine Bacteria (Auto) NONE (NEGATIVE) /HPF Urine RBC TRACE-INTACT (0-5) Kendrick/ul Ur Culture Indicated? NO Urine Glucose NEGATIVE (NEGATIVE) mg/dL 11/21/21 11/21/21 11/21/21 Range/Units 12:54 12:54 12:54 WBC 7.2 (4.0-10.5) x10^3/uL RBC 4.82 (4.1-5.4) x10^6/uL Hgb 14.4 (12.0-16.0) g/dL Hct 43.5 (35-47) % MCV 90.2 (78-100) fL MCH 29.9 (26-32) pg MCHC 33.1 (32-36) g/dL RDW 12.4 (11.5-14.0) % Plt Count 246 (150-450) x10^3/uL MPV 9.2 (7.5-11.0) fL Gran % 55.5 (36.0-66.0) % Immature Gran % (Auto) 0.4 (0.00-0.4) % Nucleat RBC Rel Count 0.0 (0.00-0.1) % Eos # (Auto) 0.18 (0-0.5) x10^3/uL Immature Gran # (Auto) 0.03 (0.00-0.03) x10^3u/L Absolute Lymphs (auto) 2.45 (1.0-4.6) x10^3/uL Absolute Monos (auto) 0.52 (0.0-1.3) x10^3/uL Absolute Nucleated RBC 0.00 (0.00-0.01) x10^3u/L Lymphocytes % 34.0 (24.0-44.0) % Monocytes % 7.2 (0.0-12.0) % Eosinophils % 2.5 (0.00-5.0) % Basophils % 0.4 (0.0-0.4) % Absolute Granulocytes 3.99 (1.4-6.9) x10^3/uL Basophils # 0.03 (0-0.4) x10^3/uL PT 10.3 (9.4-12.5) SECONDS INR 0.97 (0.8-3.0) APTT 30.5 (25.1-36.5) SECONDS D-Dimer < 0.19 (0.0-0.50) mg/L Sodium 140 (137-145) mmol/L Potassium 3.8 (3.5-5.1) mmol/L Chloride 102 (98-107) mmol/L Carbon Dioxide 31 H (22-30) mmol/L Anion Gap 10.8 (5-15) MEQ/L BUN 16 (7-17) mg/dL Creatinine 0.60 (0.52-1.04) mg/dL Estimated GFR > 60.0 ML/MIN Glucose 174 H (74-106) mg/dL Lactic Acid (0.4-2.0) Calcium 9.4 (8.4-10.2) mg/dL Magnesium 1.9 (1.6-2.3) mg/dL Total Bilirubin 0.50 (0.2-1.3) mg/dL AST 23 (14-36) U/L ALT 23 (0-35) U/L Alkaline Phosphatase 69 (38-126) U/L Troponin I (0.000-0.034) ng/mL NT-Pro-B Natriuret Pep 103 (0-900) pg/mL Serum Total Protein 7.1 (6.3-8.2) g/dL Albumin 4.3 (3.5-5.0) g/dL Amylase 60 (30-110) U/L Lipase 69 (23-300) U/L Urinalys Dipstick Clnc Urine Color (YELLOW) Urine Appearance (CLEAR) Urine pH (5-6) Ur Specific Dufur (1.005-1.025) POC Urine Protein Conf (Negative) Urine Ketones (NEGATIVE) Urine Nitrite (NEGATIVE) Urine Bilirubin (NEGATIVE) Urine Urobilinogen (0-1) mg/dL Urine Leukocytes (NEGATIVE) Urine WBC (Auto) (0-5) /HPF Urine RBC (Auto) (0-2) /HPF U Epithel Cells (Auto) (FEW) /HPF Urine Bacteria (Auto) (NEGATIVE) /HPF Urine RBC (0-5) Kendrick/ul Ur Culture Indicated? Urine Glucose (NEGATIVE) mg/dL 11/21/21 Range/Units 12:49 WBC (4.0-10.5) x10^3/uL RBC (4.1-5.4) x10^6/uL Hgb (12.0-16.0) g/dL Hct (35-47) % MCV (78-100) fL MCH (26-32) pg MCHC (32-36) g/dL RDW (11.5-14.0) % Plt Count (150-450) x10^3/uL MPV (7.5-11.0) fL Gran % (36.0-66.0) % Immature Gran % (Auto) (0.00-0.4) % Nucleat RBC Rel Count (0.00-0.1) % Eos # (Auto) (0-0.5) x10^3/uL Immature Gran # (Auto) (0.00-0.03) x10^3u/L Absolute Lymphs (auto) (1.0-4.6) x10^3/uL Absolute Monos (auto) (0.0-1.3) x10^3/uL Absolute Nucleated RBC (0.00-0.01) x10^3u/L Lymphocytes % (24.0-44.0) % Monocytes % (0.0-12.0) % Eosinophils % (0.00-5.0) % Basophils % (0.0-0.4) % Absolute Granulocytes (1.4-6.9) x10^3/uL Basophils # (0-0.4) x10^3/uL PT (9.4-12.5) SECONDS INR (0.8-3.0) APTT (25.1-36.5) SECONDS D-Dimer (0.0-0.50) mg/L Sodium (137-145) mmol/L Potassium (3.5-5.1) mmol/L Chloride (98-107) mmol/L Carbon Dioxide (22-30) mmol/L Anion Gap (5-15) MEQ/L BUN (7-17) mg/dL Creatinine (0.52-1.04) mg/dL Estimated GFR ML/MIN Glucose (74-106) mg/dL Lactic Acid 1.1 (0.4-2.0) Calcium (8.4-10.2) mg/dL Magnesium (1.6-2.3) mg/dL Total Bilirubin (0.2-1.3) mg/dL AST (14-36) U/L ALT (0-35) U/L Alkaline Phosphatase (38-126) U/L Troponin I (0.000-0.034) ng/mL NT-Pro-B Natriuret Pep (0-900) pg/mL Serum Total Protein (6.3-8.2) g/dL Albumin (3.5-5.0) g/dL Amylase (30-110) U/L Lipase (23-300) U/L Urinalys Dipstick Clnc Urine Color (YELLOW) Urine Appearance (CLEAR) Urine pH (5-6) Ur Specific [place] (1.005-1.025) POC Urine Protein Conf (Negative) Urine Ketones (NEGATIVE) Urine Nitrite (NEGATIVE) Urine Bilirubin (NEGATIVE) Urine Urobilinogen (0-1) mg/dL Urine Leukocytes (NEGATIVE) Urine WBC (Auto) (0-5) /HPF Urine RBC (Auto) (0-2) /HPF U Epithel Cells (Auto) (FEW) /HPF Urine Bacteria (Auto) (NEGATIVE) /HPF Urine RBC (0-5) Kendrick/ul Ur Culture Indicated? Urine Glucose (NEGATIVE) mg/dL - Progress Progress: improved Air Movement: good Blood Culture(s) Obtained: No Antibiotics given: No - Departure Departure Disposition: Home Clinical Impression: Chest pain Condition: Stable Critical Care Time: No Referrals: ASHER BHATTI [Primary Care Provider] - Follow up/PCP as directed Instructions: Chest Pain (DC)
[2021-11-21 16:08] VITALS: BP 150/88; PULSE 68; O2SAT 98
== END 2021-11-21 16:09 | disposition home or self-care (01) ==
LOC: ED 12:22
DX: R07.9 Chest pain, unspecified (principal); R51.9 Headache, unspecified; I10 Essential (primary) hypertension; E11.9 Type 2 diabetes mellitus without complications; Z79.4 Long term (current) use of insulin; Z79.899 Other long term (current) drug therapy
CPT/HCPCS: 36000; 36415; 71045; 80053; 81015; 82150; 83605; 83690; 83735; 83880; 84484; 85025; 85379; 85610; 85730; 93005; 99284; A9270-GY